=== PATIENT | male | born 1960 | race Caucasian/White ===

== ENCOUNTER 2017-07-23 11:03 | Day surgery (SDC) | payer BC ==
[~2017-07-23 11:03] MED LIST: ALPRAZolam 0.25 MG TAB PO PRN; ALPRAZolam 0.5 MG TAB PO PRN; ASPIRIN 325 MG TAB PO STA; NITROGLYCERIN SL TABS 0.4 MG TAB SUBLINGUAL PRN; SODIUM CHLORIDE 0.9% 1,000 ML in EMPTY BAG 1 BAG IV ONE
[2017-07-23 11:41] VITALS: PULSE 73; TEMP 98.1
[2017-07-23 12:06] LABS: Anion Gap 10 mmol/L; Blood Urea Nitrogen 24 mg/dL (9-20); Calcium 9.8 mg/dL (8.4-10.2); Carbon Dioxide 27 mmol/L (22-30); Chloride 104 mmol/L (98-107); Glucose 90 mg/dL (74-99); Non-African American GFR(MDRD) >60 (>60 ml/min/1.73 sqM); Potassium 4.6 mmol/L (3.5-5.1); Sodium 141 mmol/L (137-145)
[2017-07-23] MEDS ORDERED: LIDOCAINE 2% INJ 20 MG/ML (20 ML MDV) ONE (12:38)
[2017-07-23] MEDS ORDERED: MIDAZOLAM 2 MG/2 ML VIAL ONE (12:41)
[2017-07-23] MEDS ORDERED: fentaNYL (PF) 50 MCG/ML 2 ML AMP ONE (12:42)
[2017-07-23] MEDS ORDERED: fentaNYL (PF) 50 MCG/ML 2 ML AMP IV ONE (12:45)
[2017-07-23] MEDS: MIDAZOLAM 2 MG/2 ML VIAL IV ONE ×2 (12:45→12:51)
[2017-07-23] MEDS ORDERED: LIDOCAINE 2% INJ 20 MG/ML SQ ONE (12:51)
[2017-07-23] MEDS ORDERED: IOHEXOL 350 MG/ML 125ML BOTTLE INJ ONE (13:03)
[2017-07-23] MEDS ORDERED: IV FLUID CONTINUATION 1,000 ML IV ONE (13:04)
[2017-07-23] MEDS ORDERED: HYDROcodone/APAP 5-325MG 1 EACH TAB PO PRN (13:16)
[2017-07-23] MEDS ORDERED: RX INFO: IV CONTRAST WAS GIVEN 1 EACH MISC MISCELLANE PRN (13:16)
[2017-07-23] MEDS ORDERED: SODIUM CHLORIDE 0.9% 1,000 ML IV SCH (13:30)
--- NOTE | 2017-07-23 15:18 | CC ---
CARDIAC CATHETERIZATION REPORT Mr. Yan is a 57-year-old gentleman who has been having exertional chest discomfort. Patient recently underwent a stress test and during the stress test, patient had a burning sensation in the chest with exertion and so the patient was advised cardiac catheterization for definitive diagnosis. PROCEDURE: The right groin was prepped and draped in the usual manner and the skin was infiltrated with 2% Xylocaine. The right femoral artery was entered using Seldinger technique and #6-Cypriot sheath was placed in. Selective coronary angiography was then performed in multiple projections. Left ventricular pressures were obtained and patient tolerated the procedure well. Sheath was removed and good hemostasis was achieved with the use of Angio-Seal. Moderate sedation was used, total sedation time was 25 minutes. HEMODYNAMICS: The left ventricular end-diastolic pressure is 12 mmHg prior to angiography and no gradient is noted across the aortic valve. Selective coronary angiography, left main coronary artery is normal and patent. LAD is a good caliber blood vessel and uses a good size high diagonal branch. LAD and its branches are normal. Circumflex coronary artery is dominant in distribution and gives rise to a good size obtuse marginal branches and it gives rise to a small size PDA branch of the circumflex coronary artery and its branches are normal. The right coronary artery is small and nondominant. FINAL IMPRESSION: This study reveals normal coronary arteries, left ventricular end systolic function is normal. RECOMMENDATIONS: Continue medical treatment. MMODL / IJN: [id number] /
[2017-07-23 17:33] VITALS: RESP 20
[2017-07-23 18:36] VITALS: BP 120/56
== END 2017-07-23 18:40 | disposition home or self-care (01) ==
LOC: CATHCVL 11:03
PROVIDERS: ATTEND Internal Medicine Cardiovascular Disease
DX: I25.118 Atherosclerotic heart disease of native coronary artery with other forms of angina pectoris (principal); R94.39 Abnormal result of other cardiovascular function study; E78.5 Hyperlipidemia, unspecified; I65.29 Occlusion and stenosis of unspecified carotid artery; Z86.73 Personal history of transient ischemic attack (TIA), and cerebral infarction without residual deficits; Z82.49 Family history of ischemic heart disease and other diseases of the circulatory system; Z88.6 Allergy status to analgesic agent; Z88.8 Allergy status to other drugs, medicaments and biological substances; Z87.891 Personal history of nicotine dependence; Z79.82 Long term (current) use of aspirin; Z79.899 Other long term (current) drug therapy
CPT/HCPCS: 93458; 80048; C1760; C1894; C1769; J2001; J2250; J3010; Q9967

== ENCOUNTER → 2018-10-25 | Outpatient (CLI) | payer OTHER ==
[2018-10-25 22:55] LABS: LDL Cholesterol,Calculated 75.2 mg/dL (0.0-131.0); VLDL Calculation 35.8 mg/dL (5.00-40.00)
== END | disposition home or self-care (01) ==
LOC: LABWHC1 17:01
PROVIDERS: ATTEND Nurse Practitioner Adult Health
DX: E78.5 Hyperlipidemia, unspecified (principal)
CPT/HCPCS: 36415; 80061

== ENCOUNTER → 2018-11-08 | Outpatient (CLI) | payer OTHER ==
--- NOTE | 2018-11-08 14:14 | MR ---
EXAMINATION TYPE: MR shoulder LT wo con DATE OF EXAM: 11/08/2018 COMPARISON: None HISTORY: Pain in left shoulder. TECHNIQUE: Multiplanar, multisequence imaging of the left shoulder is performed without contrast. FINDINGS: Rotator Cuff: There is a 3 x 5 mm intrasubstance tear of the myotendinous junction of the supraspinat us. More distally along the myotendinous junction there is a bursal surface tear measuring 7 x 5 mm. Along the mid and posterior fibers there is a full-thickness tear measuring 10 x 8 mm. Along the ante rior insertional fibers there is a full-thickness tear measuring 8 x 6 mm. Findings are superimposed upon moderate supraspinatus tendinopathy with bursal surface fiber fraying. There is bursal surface fiber fraying of the infraspinatus and mild tendinopathy with alteration of t he intrinsic signal. The teres minor and subscapularis are unremarkable in morphology and signal. Acromioclavicular Joint: There is moderate acromioclavicular arthropathy with capsular hypertrophy, s ubchondral cyst formation and small marginal osteophytes. There is minimal impression upon the supras pinatus. There is only mild downsloping of the distal acromion. Glenohumeral Joint: Small osseous cysts are seen of the greater tuberosity. Chondral heterogeneity is also seen. Labrum: The labrum appears grossly intact given limitation of non-arthrogram study. Global labral deg eneration is seen. However motion artifact slightly limits the exam. Biceps Tendon: The long head of biceps is in normal location within bicipital groove. However there i s mild attenuation of the intra-articular portion of the biceps tendon relating to mild tendinosis Bone marrow signal: No focal abnormal marrow signal is appreciated. Other: There is scant fluid seen in the subcoracoid bursa and the subdeltoid/subacromial bursa. IMPRESSION: 1. Multifocal low-grade partial-thickness and full-thickness tears of the supraspinatus with 3 x 5 mm myotendinous junction intrasubstance tear, distal myotendinous junction bursal surface partial-thick ness 7 x 5 mm tear, mid to posterior fiber full-thickness 10 x 8 mm distal tendon tear and anterior i nsertional fiber full-thickness 8 x 6 mm tear. Findings are superimposed upon moderate tendinopathy a nd bursal surface fiber fraying. 2. Mild infraspinatus tendinopathy and bursal surface fiber fraying. 3. Mild long head of biceps interarticular portion tendinosis. 4. Moderate acromioclavicular arthropathy with mild internal impingement of the supraspinatus. 5. No gross evidence of labral tear however there is global labral degeneration and limited evaluatio n without contrast and limited evaluation due to motion artifact.
== END | disposition home or self-care (01) ==
LOC: RADMRIMAIN 13:20
PROVIDERS: ATTEND Orthopaedic Surgery
DX: M19.012 Primary osteoarthritis, left shoulder (principal); M75.122 Complete rotator cuff tear or rupture of left shoulder, not specified as traumatic; M75.82 Other shoulder lesions, left shoulder

== ENCOUNTER → 2018-12-04 | Outpatient (CLI) | payer OTHER ==
--- NOTE | 2018-12-05 08:36 | CT ---
EXAMINATION TYPE: CT abdomen pelvis w con DATE OF EXAM: 12/04/2018 COMPARISON: None HISTORY: LLQ pain. Pt concerned about inguinal hernia CT DLP: 964.80 mGycm Automated exposure control for dose reduction was used. TECHNIQUE: Helical acquisition of images was performed from the lung bases through the pelvis. CONTRAST: Performed with Oral Contrast and with IV Contrast, patient injected with 100 mL of Isovue 300. FINDINGS: LUNG BASES: There is minimal bibasilar subsegmental dependent atelectasis. LIVER/GB: Hepatic parenchyma is diffusely hypoattenuated in comparison to that of the spleen, most co mmonly seen in hepatic steatosis. This finding limits evaluation for hepatic masses. Small hepatic cy st is seen within segment 5 and smaller probable hepatic cyst is seen at the margin of segment 8 and segment IVb. However this is subcentimeter and too small to accurately characterize. No intrahepatic biliary ductal dilatation. Gallbladder is contracted. PANCREAS: No significant abnormality is seen. SPLEEN: No significant abnormality is seen. ADRENALS: No significant abnormality is seen. KIDNEYS: 9 mm right lower pole renal cyst and too small to accurately characterize partially exophyti c lower pole renal lesions are seen. Otherwise the kidneys enhance symmetrically without hydronephros is. FREE AIR: No free air is visualized. ADENOPATHY: No greater than 1 cm short axis lymph nodes are seen within the abdomen or pelvis. REPRODUCTIVE ORGANS: No significant abnormality is seen URINARY BLADDER: Urinary bladder is decompressed and urinary bladder wall thickening could relate to incomplete distention or cystitis. Urinalysis could be considered. OSSEOUS STRUCTURES: No significant abnormality is seen. BOWEL: Moderate amount retained colonic stool is seen, limiting evaluation of the colon as contrast has not progressed into the colon. However no constrictive colonic masses seen. Appendix is air-fille d and within normal limits. No dilated large or small bowel. OTHER: No inguinal hernia is appreciated. The right inguinal canal is a very minimally patulous. IMPRESSION: 1. NO INGUINAL HERNIA IS SEEN. 2. THERE IS CIRCUMFERENTIAL URINARY BLADDER WALL THICKENING. CORRELATION WITH URINALYSIS COULD BE PER FORMED ALTHOUGH THIS FINDING COULD RELATE TO INCOMPLETE DISTENTION. 3. HEPATIC STEATOSIS OVERALL APPEARING MILD IN DEGREE. 3. HEPATIC CYSTS, RENAL CYST, AND OTHER HEPATIC AND RENAL LESIONS THAT ARE SUBCENTIMETER AND TOO SMAL L TO ACCURATELY CHARACTERIZE.
== END ==
LOC: RADCTMAIN 15:00
PROVIDERS: ATTEND Internal Medicine
DX: N32.9 Bladder disorder, unspecified (principal); K76.0 Fatty (change of) liver, not elsewhere classified; K76.89 Other specified diseases of liver; N28.1 Cyst of kidney, acquired
CPT/HCPCS: 74177; Q9967

== ENCOUNTER 2019-01-03 06:16 | Day surgery (SDC) | payer OTHER ==
[2019-01-01 16:13] VITALS: BMI 27.5
[~2019-01-03 06:16] MED LIST changes: +ACETAMINOPHEN TAB 500 MG TAB PO ONE; -ALPRAZolam 0.25 MG TAB PO PRN; -ALPRAZolam 0.5 MG TAB PO PRN; -ASPIRIN 325 MG TAB PO STA; +HYDROmorphone 0.5 MG/0.5 ML SYRINGE IVP PRN; +LACTATED RINGERS 1,000 ML IV SCH; +MORPHINE SULFATE 4 MG/ML SYRINGE IV PRN; -NITROGLYCERIN SL TABS 0.4 MG TAB SUBLINGUAL PRN; +ONDANSETRON 4 MG/2 ML VIAL IVP ONE; -SODIUM CHLORIDE 0.9% 1,000 ML in EMPTY BAG 1 BAG IV ONE; +TRANEXAMIC ACID 1,000 MG in SODIUM CHLORIDE 0.9% 100 ML IVPB ONE; +ceFAZolin IN SWFI 2 GM/20 ML SYRINGE IVP ONE
[2019-01-03] MEDS ORDERED: fentaNYL (PF) 50 MCG/ML 2 ML AMP IVP ONE (07:28)
[2019-01-03] MEDS ORDERED: MIDAZOLAM (PF) 2 MG/2 ML VIAL IVP ONE (07:30)
--- NOTE | 2019-01-03 07:42 | P.ONQ ---
Anesthesiology Proc Note - PNB - Peripheral Nerve Block Performed Left Interscalene Single Time Out Performed: Yes Procedure Start Time: Procedure Stop Time: Indication: Acute Post-Operative Pain, Analgesia, Requested by physician Sedation Type: Sedate with meaningful contact maintained Preparation: Sterile Prep Position: Supine Catheter: None Needle Types: On-Q Needle Size: 100mm (4") Needle Gauge: 21 Technique: Ultrasound Injectate: Other (see comment) (4mg dexamethasone) Blood Aspirated: No Pain Paresthesia on Injection Noted: No Resistance on Injection: Normal Events: Uneventful and Well Tolerated
[2019-01-03] MEDS ORDERED: PROPOFOL 10 MG/ML 20 ML VIAL IV ONE (07:52)
[2019-01-03] MEDS ORDERED: GLYCOPYRROLATE 0.2 MG/ML 2 ML VIAL ONE (07:52)
[2019-01-03] MEDS ORDERED: ePHEDrine SULFATE/0.9% NACL/PF 50 MG/5 ML SYRINGE IV ONE (07:52)
[2019-01-03] MEDS ORDERED: ROPIVACAINE 5 MG/ML 30 ML VIAL ONE (07:52)
[2019-01-03] MEDS ORDERED: LIDOCAINE 1% INJ 10MG/ML (20 ML MDV) ONE (07:52)
[2019-01-03] MEDS ORDERED: MIDAZOLAM 2 MG/2 ML VIAL ONE (07:52)
[2019-01-03] MEDS ORDERED: ROCURONIUM BROMIDE 10 MG/ML 10 ML VIAL IV ONE (07:52)
[2019-01-03] MEDS ORDERED: NEOSTIGMINE 1 MG/ML 10 ML VIAL ONE (07:52)
[2019-01-03] MEDS ORDERED: DEXAMETHASONE SOD PHOSPHATE 4 MG/ML 1 ML VIAL ONE (07:52)
[2019-01-03] MEDS ORDERED: EPINEPHrine 4 MG in SODIUM CHLORIDE 0.9% IRRIGATIO 3,000 ML IRRIGATION ONE ×8 (09:20)
[2019-01-03] MEDS ORDERED: LACTATED RINGERS 1,000 ML IV ONE (09:46)
--- NOTE | 2019-01-03 09:46 | P.OP ---
Date of Procedure: 01/03/19 Procedure(s) Performed: left shoulder scope GIUSEPPE gay PREOPERATIVE DIAGNOSES: 1. Left shoulder rotator cuff tendinopathy. 2. Chronic impingement syndrome. 3. Acromioclavicular osteoarthritis. 4. Superior labral degenerative tear. POSTOPERATIVE DIAGNOSES: 1. Left shoulder rotator cuff tear (supraspinatus, 1.0 cm). 2. Chronic impingement syndrome. 3. Mild adhesive capsulitis 4. AC joint osteoarthritis, no significant contributory impinging spurs PROCEDURES PERFORMED: 1. Left shoulder arthroscopy with rotator cuff repair (1 anchor) 2. Arthroscopic lysis of adhesions and manipulation under anesthesia 3. Arthroscopic subacromial decompression ANESTHESIA: General. ESTIMATED BLOOD LOSS: Less than 25 mL TOURNIQUET: None REGIONAL OPERATIONS MANAGER: Melly Gay PA-C (assistance with: Positioning, retraction, camera operation, repair, closure, dressing) COMPLICATIONS: None. DISPOSITION: To postanesthesia care unit INDICATIONS: Mr. Yan is a 58 year old male with a history of rotator cuff difficulties. MRI was suspicious for a tear, and the patient wishes to have it repaired. I have examined the patient in the office and proposed rotator cuff repair via an arthroscopic or mini-open approach, as well as other procedures to optimize the shoulder and outcome, such as decompression of spurs and debridement of loose or degenerated tissue. I have explained the risks of this surgery as being inclusive of, but not limited to: bleeding, infection, scarring, discomfort, blood vessel and/or nerve damage, need for further surgery, stiffness, persistence or worsening of problems, , and other risks. The consent form has been completed and signed. PROCEDURE: Appropriate consent was obtained from the patient. The patient was taken to the operating room and placed in the supine position. General anesthesia was initiated and after confirmation of adequate anesthesia, the patients right shoulder was examined. Initial range of motion showed flexion to 150 abduction to 150, external rotation to 60 and internal rotation to 30. Using Codman's paradox maneuver, the left shoulder was gently stretched and final range of motion after the stretch was for flexion to 180 , abduction to 180, external rotation to 75, and internal rotation to 75 with the arm at 90 abduction. The shoulder was stable. Next, the patient was rotated into the lateral decubitus position and stabilized to the table with a shay bag and padded straps. Care was taken to make sure that all pressure points were adequately padded. Bear-hugger was used along with bilateral leg sequential compression devices. Prepping and draping was completed in the usual aseptic fashion using ChloraPrep. The patient received intravenous antibiotics prior to incision. The shoulder was suspended from traction with 15 lbs. of weight in a position of 45 degrees abduction. Landmarks were outlined with a skin marking pen. A spinal needle was inserted into the glenohumeral joint and fluid was administered to distend the joint. A posterior portal was created using an 11 blade and the arthroscopic canula, over a dull trocar, was carefully inserted into the joint. Arthroscopy then commenced. An anterior portal was inserted in the rotator interval area using inside-out technique. Biceps tendon was normal. Infraspinatus, subscapularis, and teres minor attachments were normal. Hyaline cartilage of the glenoid and humeral head showed degenerative changes typical for age. Supraspinatus attachment showed an area of suspicion of high grade partial tearing with evidence of minor damage on the articular side but suspicion of more serious damage on the bursal side. No loose bodies were noted in the joint. Superior labrum showed some degenerative tearing but was well-attached. Negative peel back sign. No debridement was necessary. Synovitis was noted superior to the superior labrum and within the rotator interval. This was debrided and removed where the capsule appeared inflamed, using an arthroscopic shaver. Attention was then directed to the subacromial space. The camera and instruments were redirected into the subacromial space and bursoscopy was performed. The patients bursa was inflamed and thickened, indicating chronic bursitis. There also appear to be significant degenerative adhesions present within the lateral gutter anterior gutter and posterior gutter. These adhesions were lysed using a shaver and radiofrequency and attention was paid to meticulous hemostasis with the ArthroCare device. A lateral portal was created using outside-in technique. The supraspinatus tendon was examined particularly closely. There was an approximately 1.0 cm high-grade partial tear. The loose fibers of the tear were debrided back to stable tissue and the defect in the tendon was repaired arthroscopically after careful preparation of the supraspin atus footprint with kamala and rasp to create a good bleeding surface of bone, see below. The undersurface of the acromion had frictional changes consistent with impingement syndrome. The underside of the acromion anteriorly was cleared of soft tissue using an arthroscopic radiofrequency ablator. Care was taken while using the ablator not to exceed 40 degrees Centigrade within the bursa. The fric tional changes of the rotator cuff matched exactly the location of the rotator cuff tear in the critical zone. A formal subacromial decompression was performed using a kamala. Approximately 5 mm of material was removed from the anterior-inferior corner of the acromion. This resection was beveled upwards laterally, and carried to the AC joint. The AC joint in this case did not have any significant contributing impinging spurs and was therefore left undisturbed. The rotator cuff tear was then repaired as follows. Preparation of the supraspinatus footprint was performed using hand rasps , kamala, and shaver. This created a bleeding surface without significant decortication. A reverse mattress suture using Fiber Tape from [employer] was deployed into the torn supraspinatus edge. A 4.75 mm Swivelock anchor was then deployed at the greater tuberosity and the suture tension was adjusted so that there was complete reduction and coverage of the footprint. Loose cuff material adjacent to the fiber tape was tacked down using the accessory stitch within the anchor. Suture tails were then cut. It was noted that there was complete closure of the cuff defect. The repair was stable. Subsequently, 4-0 Monocryl was used to close the portal holes. Steri-strips were applied as well as sterile dressing. The shoulder was then placed into a sling and the patient was transferred to recovery room in stable condition. Sponge and needle counts were correct.
[2019-01-03 10:04] VITALS: TEMP 97
[2019-01-03 11:44] VITALS: BP 129/83; PULSE 77; RESP 16
== END 2019-01-03 12:10 | disposition home or self-care (01) ==
LOC: OR 06:16
PROVIDERS: ATTEND Orthopaedic Surgery
DX: M75.102 Unspecified rotator cuff tear or rupture of left shoulder, not specified as traumatic (principal); M75.42 Impingement syndrome of left shoulder; M75.02 Adhesive capsulitis of left shoulder; M19.012 Primary osteoarthritis, left shoulder; M65.9 Synovitis and tenosynovitis, unspecified; M75.52 Bursitis of left shoulder; I11.9 Hypertensive heart disease without heart failure; E78.5 Hyperlipidemia, unspecified; Z87.891 Personal history of nicotine dependence; R45.0 Nervousness; K21.9 Gastro-esophageal reflux disease without esophagitis; Z79.899 Other long term (current) drug therapy; H40.9 Unspecified glaucoma; H91.90 Unspecified hearing loss, unspecified ear; Z88.5 Allergy status to narcotic agent
CPT/HCPCS: 64415; 29826; 29827; C1713 ×2; C1894; J0171; J2250 ×2; J1100; J2710; J2405; J2001; J3010; J2795; J2704; J0690

== ENCOUNTER → 2020-07-22 | Outpatient (CLI) | payer OTHER ==
[2020-07-22 14:49] LABS: African American GFR (CKD) 93.1 (60.0-200.0); Anion Gap 9.5 mmol/L (4.00-12.00); Calcium 9.8 mg/dL (8.7-10.3); Carbon Dioxide 28.5 mmol/L (21.6-31.8); Non-African American GFR(CKD) 80.3 (60.0-200.0); Potassium 4.9 mmol/L (3.5-5.5)
== END | disposition home or self-care (01) ==
LOC: LABWHC1 07:27
PROVIDERS: ATTEND Physician Assistant
DX: I10 Essential (primary) hypertension (principal)
CPT/HCPCS: 36415; 80048

== ENCOUNTER 2020-08-27 08:37 | Emergency (ER) | payer OTHER ==
--- NOTE | 2020-08-27 08:46 | ED ---
General Adult HPI - General Source: patient Mode of arrival: wheelchair Limitations: no limitations <Cindy Traore - Last Filed: 08/27/20 12:51> <Viviana Robles - Last Filed: 08/27/20 22:35> - General Chief complaint: Dizziness Stated complaint: Near Syncope Time Seen by Provider: 08/27/20 08:46 - History of Present Illness Initial comments: 60yo male with history of HTN and CAD, vertigo presenting today for dizziness. Patient states that he woke up in the middle of night with dizziness, anytime that he rolled over the entire room was spinning. patient sates that when he went to try to walk he felt off balance, denies headaches, vision loss, neck pain. Admits to nausea when he changes position or turns head quickly. Patient states that maybe he has a vague discomfort in the chest left sided from time to time. Pt denies new dyspnea, states he has chronic from his COPD. Patient states that he feels like he is going to fall over when walks. He states he has struggled with vertigo for 10 years, but this is by far the worst time. He denies syncope. Pt denies leg swelling. Patient denies DM. Smoking hx. Patient appears nontoxic in no distress on arrival. (Cindy Traore) - Related Data Home Medications Medication Instructions Recorded Confirmed Atorvastatin [Lipitor] 20 mg PO DAILY 07/23/17 08/27/20 Metoprolol Succinate (ER) [Toprol 25 mg PO DAILY 07/23/17 08/27/20 XL] PARoxetine [Paxil] 20 mg PO DAILY 07/23/17 08/27/20 Pantoprazole Sodium [Protonix] 40 mg PO DAILY 07/23/17 08/27/20 allopurinoL [Zyloprim] 300 mg PO DAILY 01/01/19 08/27/20 Diazepam [Valium] 10 mg PO HS PRN 08/27/20 08/27/20 Fluticasone/Salmeterol [Advair Hfa 2 puff INHALATION RT-BID 08/27/20 08/27/20 230-21 Mcg Inhaler] Ibuprofen [Motrin] 800 mg PO Q8H PRN 08/27/20 08/27/20 Lisinopril [Prinivil] 10 mg PO HS 08/27/20 08/27/20 Montelukast Sodium [Singulair] 10 mg PO HS 08/27/20 08/27/20 Previous Rx's Medication Instructions Recorded Loratadine [Claritin] 10 mg PO DAILY 7 Days #7 tab 08/27/20 Meclizine [Antivert] 25 mg PO TID 7 Days #21 tab 08/27/20 Ondansetron Odt [Zofran Odt] 4 mg PO Q8HR PRN 7 Days #21 tab 08/27/20 Allergies Allergy/AdvReac Type Severity Reaction Status Date / Time propoxyphene Allergy Rash/Hives Verified 08/27/20 09:47 [From Darcet-N 100] Review of Systems ROS Other: All systems not noted in ROS Statement are negative. <Cinyd Traore - Last Filed: 08/27/20 12:51> ROS Other: All systems not noted in ROS Statement are negative. <Viviana Robles - Last Filed: 08/27/20 22:35> ROS Statement: Those systems with pertinent positive or pertinent negative responses have been documented in the HPI. Past Medical History Past Medical History: Coronary Artery Disease (CAD), Hyperlipidemia, Hypertension Additional Past Medical History / Comment(s): blood thinner for thickening artery vessel History of Any Multi-Drug Resistant Organisms: None Reported Past Surgical History: Heart Catheterization, Orthopedic Surgery Additional Past Surgical History / Comment(s): ankle, shoulder Past Psychological History: Anxiety Smoking Status: Never smoker Past Alcohol Use History: None Reported Past Drug Use History: None Reported <Cindy Traore - Last Filed: 08/27/20 12:51> General Exam Limitations: no limitations <Cindy Traore - Last Filed: 08/27/20 12:51> - General Exam Comments Initial Comments: General: The patient is awake and alert, in no distress, and does not appear acutely ill. Eye: +3 mm pupils are equal, round and reactive to light, extra-ocular movements are intact. No nystagmus. There is normal conjunctiva bilaterally. No signs of icterus. Cannot reproduce nystagmus with movement and head turning. Ears, nose, mouth and throat: There are moist mucous membranes and no oral lesions. Neck: The neck is supple, there is no tenderness or JVD. Cardiovascular: There is a regular rate and rhythm. No murmur, rub or gallop is appreciated. Respiratory: Lungs are clear to auscultation, respirations are non-labored, breath sounds are equal. No wheezes, stridor, rales, or rhonchi. Musculoskeletal: Normal ROM, no tenderness. Strength 5/5. Sensation intact. Radial and DP pulses equal bilaterally 2+. Neurological: A&O x 3. CN II-XII intact, There are no obvious motor or sensory deficits. Coordination appears grossly intact. Speech is normal. Normal gait no ataxia. Finger to nose [id number] finger opposition and hand flips moving coordinated bilaterally. Skin: Skin is warm and dry and no rashes or lesions are noted. No LE edema. Psychiatric: Cooperative, appropriate mood & affect, normal judgment. (Cindy Traore) Course Vital Signs 08/27/20 08/27/20 08/27/20 08:40 11:40 12:30 Temperature 98.5 F 98.0 F Pulse Rate 85 99 96 Respiratory 18 17 18 Rate Blood Pressure 132/82 139/99 132/87 O2 Sat by Pulse 97 99 97 Oximetry EKG Findings - EKG Comments: EKG Findings:: Ventricular rate 76 bpm, NC interval 166 ms, QRS duration 90 ms, QT/QTC 370/416 ms. This is normal sinus to sinus arrhythmia. There is no ST elevation or depression appreciated. Ventricular rate 83 bpm, NC interval 168 ms, QRS orthodoxy 94 ms, QT/QTc 366/430 milliseconds. This is normal sinus no ST elevation or depression is appreciated as there is artifact on the initial EKG it was repeated <Cindy Traore - Last Filed: 08/27/20 12:51> Medical Decision Making - Lab Data Result diagrams: 08/27/20 08:58 08/27/20 08:58 <Cindy Traore - Last Filed: 08/27/20 12:51> - Lab Data Result diagrams: 08/27/20 08:58 08/27/20 08:58 <Viviana Robles - Last Filed: 08/27/20 22:35> - Medical Decision Making Labs stable. denies chest pain currently. states that really was no this complaint at all. pt has hx of vertigo. pt dizziness reproduced with movement. "feels like on a boat" does not appear ataxic. no nystagmus. pt dizziness improved with medications. patient VS within acceptable limits. pt wants to try going home with symptomatic treatment and ENT f/u. CT brain (-). Pt evaluated by attending Isaac Robles who also agrees this dizziness appears peripheral in nature and is more vertigo than a syncopal pciture by exam/history provided. pt agreeable to care plan and discharge. (Cindy Traore) I was available for consultation in the emergency department. The history and p hysical exam were done by the midlevel provider. I was consulted for this patients care. I reviewed the case with the midlevel provider and based on their presentation of the patient, I agree with the assessment, medical decision making and plan of care as documented. Chart was dictated using [employer] dictation software. Attempts were made to correct any dictation errors however some typographical errors may persist. Patient was seen during a national state of emergency due to the Covid-19 lira demic. (Viviana Robles) - Lab Data Lab Results 08/27/20 08/27/20 08/27/20 Range/Units 08:58 08:58 08:58 WBC 6.0 (3.8-10.6) k/uL RBC 5.33 (4.30-5.90) m/uL Hgb 15.9 (13.0-17.5) gm/dL Hct 46.2 (39.0-53.0) % MCV 86.6 (80.0-100.0) fL MCH 29.8 (25.0-35.0) pg MCHC 34.4 (31.0-37.0) g/dL RDW 13.1 (11.5-15.5) % Plt Count 192 (150-450) k/uL MPV 8.7 Neutrophils % 71 % Lymphocytes % 19 % Monocytes % 7 % Eosinophils % 1 % Basophils % 1 % Neutrophils # 4.3 (1.3-7.7) k/uL Lymphocytes # 1.1 (1.0-4.8) k/uL Monocytes # 0.4 (0-1.0) k/uL Eosinophils # 0.1 (0-0.7) k/uL Basophils # 0.1 (0-0.2) k/uL PT 9.6 (9.0-12.0) sec INR 0.9 (<1.2) APTT 24.0 (22.0-30.0) sec Sodium (137-145) mmol/L Potassium (3.5-5.1) mmol/L Chloride (98-107) mmol/L Carbon Dioxide (22-30) mmol/L Anion Gap mmol/L BUN (9-20) mg/dL Creatinine (0.66-1.25) mg/dL Est GFR (CKD-EPI)AfAm (>60 ml/min/1.73 sqM) Est GFR (CKD-EPI)NonAf (>60 ml/min/1.73 sqM) Glucose (74-99) mg/dL Plasma Lactic Acid Cosmo (0.7-2.0) mmol/L Calcium (8.4-10.2) mg/dL Total Bilirubin (0.2-1.3) mg/dL AST (17-59) U/L ALT (4-49) U/L Alkaline Phosphatase (38-126) U/L Troponin I (0.000-0.034) ng/mL Total Protein (6.3-8.2) g/dL Albumin (3.5-5.0) g/dL Urine Color Yellow Urine Appearance Clear (Clear) Urine pH 5.5 (5.0-8.0) Ur Specific [place] 1.020 (1.001-1.035) Urine Protein Negative (Negative) Urine Glucose (UA) Negative (Negative) Urine Ketones Negative (Negative) Urine Blood Negative (Negative) Urine Nitrite Negative (Negative) Urine Bilirubin Negative (Negative) Urine Urobilinogen <2.0 (<2.0) mg/dL Ur Leukocyte Esterase Negative (Negative) 08/27/20 08/27/20 08/27/20 Range/Units 08:58 08:58 08:58 WBC (3.8-10.6) k/uL RBC (4.30-5.90) m/uL Hgb (13.0-17.5) gm/dL Hct (39.0-53.0) % MCV (80.0-100.0) fL MCH (25.0-35.0) pg MCHC (31.0-37.0) g/dL RDW (11.5-15.5) % Plt Count (150-450) k/uL MPV Neutrophils % % Lymphocytes % % Monocytes % % Eosinophils % % Basophils % % Neutrophils # (1.3-7.7) k/uL Lymphocytes # (1.0-4.8) k/uL Monocytes # (0-1.0) k/uL Eosinophils # (0-0.7) k/uL Basophils # (0-0.2) k/uL PT (9.0-12.0) sec INR (<1.2) APTT (22.0-30.0) sec Sodium 137 (137-145) mmol/L Potassium 4.4 (3.5-5.1) mmol/L Chloride 102 (98-107) mmol/L Carbon Dioxide 27 (22-30) mmol/L Anion Gap 8 mmol/L BUN 26 H (9-20) mg/dL Creatinine 0.96 (0.66-1.25) mg/dL Est GFR (CKD-EPI)AfAm >90 (>60 ml/min/1.73 sqM) Est GFR (CKD-EPI)NonAf 85 (>60 ml/min/1.73 sqM) Glucose 107 H (74-99) mg/dL Plasma Lactic Acid Cosmo 1.2 (0.7-2.0) mmol/L Calcium 9.7 (8.4-10.2) mg/dL Total Bilirubin 1.0 (0.2-1.3) mg/dL AST 30 (17-59) U/L ALT 35 (4-49) U/L Alkaline Phosphatase 70 (38-126) U/L Troponin I <0.012 (0.000-0.034) ng/mL Total Protein 7.7 (6.3-8.2) g/dL Albumin 4.8 (3.5-5.0) g/dL Urine Color Urine Appearance (Clear) Urine pH (5.0-8.0) Ur Specific [place] (1.001-1.035) Urine Protein (Negative) Urine Glucose (UA) (Negative) Urine Ketones (Negative) Urine Blood (Negative) Urine Nitrite (Negative) Urine Bilirubin (Negative) Urine Urobilinogen (<2.0) mg/dL Ur Leukocyte Esterase (Negative) Disposition Is patient prescribed a controlled substance at d/c from ED?: No Time of Disposition: 12:01 <Cindy Traore - Last Filed: 08/27/20 12:51> <AnthonyadamViviana Ronnie - Last Filed: 08/27/20 22:35> Clinical Impression: Dizziness Disposition: HOME SELF-CARE Condition: Good Instructions (If sedation given, give patient instructions): Dizziness (ED) Additional Instructions: Please use medication as discussed. Please follow-up with family doctor in the next 2 days. Please return to emergency room if the symptoms increase or worsen or for any other concerns. Prescriptions: Meclizine [Antivert] 25 mg PO TID 7 Days #21 tab Loratadine [Claritin] 10 mg PO DAILY 7 Days #7 tab Ondansetron Odt [Zofran Odt] 4 mg PO Q8HR PRN 7 Days #21 tab PRN Reason: Nausea Referrals: Baudilio Reeves MD [Primary Care Provider] - 1-2 days Jules Ford DO [Doctor of Osteopathic Medicine] - 1-2 days
[2020-08-27] MEDS ORDERED: ONDANSETRON 4 MG/2 ML VIAL IVP STA (08:55)
[2020-08-27] MEDS ORDERED: SODIUM CHLORIDE 0.9% 500 ML 500 ML IV STA (08:55)
[2020-08-27] MEDS ORDERED: SODIUM CHLORIDE 0.9% 1,000 ML IV STA (08:55)
[2020-08-27] MEDS ORDERED: MECLIZINE 12.5 MG TAB PO STA (08:55)
[2020-08-27] MEDS ORDERED: diazePAM 2 MG TAB PO STA (08:56)
[2020-08-27] MEDS ORDERED: ASPIRIN 81 MG PO STA (08:56)
[2020-08-27 09:19] LABS: Basophils # (A) 0.1 k/uL (0-0.2); Basophils % (A) 1 %; Eosinophils # (A) 0.1 k/uL (0-0.7); Eosinophils % (A) 1 %; HCT 46.2 % (39.0-53.0); HGB 15.9 gm/dL (13.0-17.5); Lymphocytes # (A) 1.1 k/uL (1.0-4.8); Lymphocytes % (A) 19 %; MCH 29.8 pg (25.0-35.0); MCHC 34.4 g/dL (31.0-37.0); MCV 86.6 fL (80.0-100.0); Mean Platelet Volume 8.7; Monocytes # (A) 0.4 k/uL (0-1.0); Monocytes % (A) 7 %; Neutrophils # (A) 4.3 k/uL (1.3-7.7); Neutrophils % (A) 71 %; Platelet Count 192 k/uL (150-450); RBC 5.33 m/uL (4.30-5.90); RDW 13.1 % (11.5-15.5)
[2020-08-27 09:25] LABS: INR 0.9 (<1.2); Prothrombin Time 9.6 sec (9.0-12.0)
[2020-08-27 09:34] LABS: ALT 35 U/L (4-49); AST 30 U/L (17-59); African American GFR (CKD) >90 (>60 ml/min/1.73 sqM); Albumin 4.8 g/dL (3.5-5.0); Alkaline Phosphatase 70 U/L (38-126); Anion Gap 8 mmol/L; Blood Urea Nitrogen 26 mg/dL (9-20); Calcium 9.7 mg/dL (8.4-10.2); Carbon Dioxide 27 mmol/L (22-30); Chloride 102 mmol/L (98-107); Glucose 107 mg/dL (74-99); Non-African American GFR(CKD) 85 (>60 ml/min/1.73 sqM); Potassium 4.4 mmol/L (3.5-5.1); Sodium 137 mmol/L (137-145); Total Protein 7.7 g/dL (6.3-8.2)
--- NOTE | 2020-08-27 09:52 | XR ---
EXAMINATION TYPE: XR chest 2V DATE OF EXAM: 08/27/2020 COMPARISON: None INDICATION: Dizziness lightheaded TECHNIQUE: Frontal and lateral views of the chest are obtained. FINDINGS: The heart size is normal. The pulmonary vasculature is normal. The lungs are clear. IMPRESSION: 1. No acute pulmonary process.
--- NOTE | 2020-08-27 10:22 | CT ---
EXAMINATION TYPE: CT brain wo con DATE OF EXAM: 08/27/2020 COMPARISON: None INDICATION: Dizziness DLP: 1121.4 mGycm, Automated exposure control for dose reduction was used. CONTRAST: None CT of the brain is performed utilizing 3 mm thick sections through the posterior fossa and 3 mm thick sections through the remaining calvarium. Study is performed within 24 hours of arrival to the hosp [facility]. No abnormal hyperdensity is present to suggest an acute intracranial hemorrhage. No mass lesion is evident. No acute infarcts are evident. Ventricles and sulci are appropriate for the patient age. Paranasal sinuses and mastoid air cells within the [id number] are clear. IMPRESSIONS: 1. Normal CT Brain
[2020-08-27 10:47] LABS: Appearance,Urine Clear (Clear); Bilirubin,Urine Negative (Negative); Blood,Urine Negative (Negative); Color,Urine Yellow; Glucose,Urine (UA) Negative (Negative); Ketones,Urine Negative (Negative); Leukocyte Esterase,Urine Negative (Negative); Nitrite,Urine Negative (Negative); PH, Urine 5.5 (5.0-8.0); Protein,Urine Negative (Negative); Urobilinogen,Urine <2.0 mg/dL (<2.0)
[2020-08-27] MEDS ORDERED: diphenhydrAMINE 50 MG/ML 1 ML VIAL IVP STA (10:49)
[2020-08-27 12:32] VITALS: BP 132/87; PULSE 96; RESP 18; TEMP 98
== END 2020-08-27 12:32 | disposition home or self-care (01) ==
LOC: EC 08:37
DX: R42 Dizziness and giddiness (principal); R55 Syncope and collapse; R11.0 Nausea; J44.9 Chronic obstructive pulmonary disease, unspecified; I25.10 Atherosclerotic heart disease of native coronary artery without angina pectoris; E78.5 Hyperlipidemia, unspecified; F41.9 Anxiety disorder, unspecified; I10 Essential (primary) hypertension; Z79.899 Other long term (current) drug therapy; Z79.51 Long term (current) use of inhaled steroids; Z79.02 Long term (current) use of antithrombotics/antiplatelets; Z88.8 Allergy status to other drugs, medicaments and biological substances; Z95.5 Presence of coronary angioplasty implant and graft
CPT/HCPCS: 99284; 96374; 96375; 96361 ×3; 36415; 93005; 80053; 83605; 84484; 85025; 85610; 85730; 81003; 71046; 70450; J1200; J2405

== ENCOUNTER 2023-08-31 11:41 | Day surgery (SDC) | payer BC, MEDICARE ==
[2023-08-30 09:13] VITALS: BMI 28.1
[~2023-08-31 11:41] MED LIST changes: -ACETAMINOPHEN TAB 500 MG TAB PO ONE; -HYDROmorphone 0.5 MG/0.5 ML SYRINGE IVP PRN; +LIDOCAINE 1% (10MG/ML) FOR IV START INTRADERMA PRN; -MORPHINE SULFATE 4 MG/ML SYRINGE IV PRN; -ONDANSETRON 4 MG/2 ML VIAL IVP ONE; -TRANEXAMIC ACID 1,000 MG in SODIUM CHLORIDE 0.9% 100 ML IVPB ONE; -ceFAZolin IN SWFI 2 GM/20 ML SYRINGE IVP ONE
[2023-08-31 13:09] VITALS: RESP 16; TEMP 97.7
[2023-08-31] MEDS ORDERED: PROPOFOL 10 MG/ML 20 ML VIAL IV ONE (13:38)
--- NOTE | 2023-08-31 13:54 | P.PCN ---
Date of Procedure: 08/31/23 Procedure(s) Performed: BRIEF HISTORY: Patient is a 63-year-old pleasant white male scheduled for an elective colonoscopy as a part of evaluation of change in bowel habits and left lower quadrant abdominal pain for the last few months duration. OCEDURE PERFORMED: Colonoscopy. PREOPERATIVE DIAGNOSIS: Change in her bowel habits and abdominal pain IV sedation per Anesthesia. PROCEDURE: After informed consent was obtained, the patient, was brought into the endoscopy unit. IV sedation was administered by Anesthesia under continuous monitoring. Digital rectal examination was normal. Initially the Olympus CF-160 flexible video colonoscope was then inserted in the rectum, gradually advanced into the cecum without any difficulty. Careful examination was performed as the scope was gradually being withdrawn. Ileocecal valve and the appendiceal orifice were visualized and appeared normal. Prep was excellent. Mucosa of the cecum, ascending colon, transverse colon, descending colon, sigmoid colon, and rectum appeared normal. Retroflexion was performed in the rectum and no lesions were seen. The patient tolerated the procedure well. IMPRESSION: Normal-appearing colon from rectum to cecum with no evidence of colorectal neoplasia . RECOMMENDATIONS: Findings of this examination were discussed with the patient as well as his family. He was advised to continue with a high-fiber diet and fiber supplements a regular basis. Recommend repeat screening colonoscopy in 10 years.
[2023-08-31] MEDS ORDERED: LACTATED RINGERS 1,000 ML IV ONE (13:57)
[2023-08-31 14:47] VITALS: BP 147/77; PULSE 69
== END 2023-08-31 14:47 | disposition home or self-care (01) ==
LOC: ORWHC2ENDO 11:41
PROVIDERS: ATTEND Internal Medicine Gastroenterology
DX: R19.4 Change in bowel habit (principal); E78.5 Hyperlipidemia, unspecified; I10 Essential (primary) hypertension; J45.909 Unspecified asthma, uncomplicated; F41.9 Anxiety disorder, unspecified; K21.9 Gastro-esophageal reflux disease without esophagitis; Z79.82 Long term (current) use of aspirin; Z79.899 Other long term (current) drug therapy; Z79.51 Long term (current) use of inhaled steroids
CPT/HCPCS: 45378; J2704

== ENCOUNTER → 2024-01-03 | Outpatient (CLI) | payer BC, MEDICARE ==
--- NOTE | 2024-01-04 14:47 | CT ---
EXAMINATION TYPE: CT abdomen pelvis wo/w con DATE OF EXAM: 01/03/2024 COMPARISON: INDICATION: RLQ abdominal pain DLP: 1643.2 mGycm, Automated exposure control for dose reduction was used. CONTRAST: 100 mL of Isovue 300. Study performed with Oral Contrast TECHNIQUE: Axial images were obtained from above the diaphragm to the pubic rami in the axial plane a t 5 mm thick sections. Reconstructed images are reviewed on the computer in the coronal plane. FINDINGS: Limited CT sections are obtained the lung bases. The lung bases are clear. CT ABDOMEN: Liver: 1.3 cm hepatic cyst right lobe liver Spleen: Normal Pancreas: Normal Adrenal glands: The adrenal glands are normal. Gallbladder: Normal Kidneys: No masses are evident. No hydronephrosis is present. Cortical renal cysts on the bilateral kidneys Delayed images were obtained through the kidneys, which remain unremarkable. Aorta: Vascular calcification is within the aorta. Inferior vena cava: Normal. CT PELVIS: Loops of bowel within the abdomen and pelvis are normal. There are loops of bowel which are incom pletely distended or lack oral contrast limiting their evaluation. Appendix: Normal as visualized. No inflammatory or dilated tubular structures apparent. Urinary bladder: Normal. Genitourinary structures: Status prominent Osseous structures: No suspicious lytic or sclerotic lesions. IMPRESSION: 1. No suspicious changes right lower quadrant. Appendix appears normal.
== END | disposition home or self-care (01) ==
LOC: RADCTMAIN 09:27
PROVIDERS: ATTEND Internal Medicine
DX: R10.30 Lower abdominal pain, unspecified (principal)
CPT/HCPCS: 74178; 36415; Q9967